=== PATIENT | female | born 1960 | race Caucasian/White ===

== ENCOUNTER 2021-01-16 11:37 | Emergency (ER) | payer OTHER, SELFPAY ==
[2021-01-16 11:43] VITALS: BP 156/94; PULSE 80; RESP 18; TEMP 36.3; O2SAT 98; BMI 32.1
--- NOTE | 2021-01-16 12:31 | ED.EYEPROB ---
HPI - Eye Problem General Chief complaint: Eye Problems Stated complaint: r eye issue Time Seen by Provider: 01/16/21 12:31 Source: patient Mode of arrival: ambulatory Limitations: no limitations History of Present Illness HPI Narrative: 60-year-old female came in for evaluation of her right eye redness. 60-year-old female came in for right eye redness, no eye discharge, no sticking eye, no watery eye, no recent eye injury, patient declined any anticoagulation therapy, no recent constipation or coughing, no recent strenuous activity. 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 Related Data Allergies Allergy/AdvReac Type Severity Reaction Status Date / Time No Known Allergies Allergy Unverified 12/05/19 19:06 Review of Systems Review of Systems: All other systems are reviewed and are negative Constitutional: Reports as per HPI and Reports no additional constitutional complaints Eyes: Reports as per HPI and Reports no additional eye complaints Reports system reviewed and no additional complaints, except as documented Cardiovascular: Reports as per HPI and Reports no additional cardiovascular complaints Respiratory: Reports as per HPI and Reports no additional respiratory complaints Gastrointestinal: Reports as per HPI and Reports no additional gastrointestinal complaints Genitourinary: Reports no additional female genitourinary complaints Musculoskeletal: Reports no additional musculoskeletal complaints Skin/Breast: Reports system reviewed and no additional complaints, except as docu Psychiatric: Reports no additional psychiatric complaints Endocrine: Reports no additional endocrine complaints Hematologic/Lymphatic: Reports no additional hematologic/lymphatic complaints Allergic/Immunologic: Reports no additional allergic/immunologic complaints Reports system reviewed and no additional complaints, except as documented and Reports Abnormal speech present FOR[facility]LY [facility] Past Medical History Medical History HTN (hypertension) Hypoactive thyroid Social History Social History Advance Directives: Yes Advance Directives Information Provided: Yes Advance Directives on File: No Patient : No Physical Exam Vital Signs: Vital Signs: Last Vital Signs Temp 97.3 F 01/16/21 11:43 Pulse 80 01/16/21 11:43 Resp 18 01/16/21 11:43 BP 156/94 H 01/16/21 11:43 Pulse Ox 98 01/16/21 11:43 Body Mass Index 32.1 Vital signs have been reviewed as appeared to be correct. Blood pressure normal. Heart rate normal. Respiration rate normal. Temperature normal. Oxygen saturation normal. Appearance: Alert. Oriented X3. No acute distress. Head: Normal external exam. Normocephalic. Atraumatic. No Costa signs noted. No raccoon eyes noted Eyes: PERRLA. EOMI. No IUP in her right 13 in the left 12, subconjunctival hemorrhage on the right eye. ENT: TM's Normal. Pharynx normal. Uvula midline. Moist mucous membranes. No trismus noted. No drooling noted. No muffled voice noted. Neck: Normal inspection. Neck supple. FROM. No adenopathy. Thyroid Normal. No meningeal signs. No neck mass noted. CVS: Normal heart rate and rhythm. Heart sound normal. No murmurs noted. Pulses normal throughout. Respiratory: No respiratory distress. Painless inspiration. Breath sounds normal. No wheezes/rales/rhonchi noted. Chest nontender. No accessory muscle usage noted or decreased air movement noted. Abdomen: Soft and nontender. Bowel sounds normal in all 4 quadrants. No distention noted. No organomegaly noted. No visible injury noted. Back: No CVA tenderness. Full range of motion noted. Skin: Skin warm and dry. Normal skin color. Normal skin turgor. No rashes/lesions/lacerations noted. Extremities: No lower extremity edema. Extremities exhibit normal range of motion. Extremities nontender. Neuro: Oriented X 3. Cranial nerve exam: II-XII are grossly intact No motor deficit. No sensory deficit. Reflexes normal. Course Course Course Narrative: Assessment and plan. Right subconjunctival hemorrhage. Nontraumatic, no issue of glaucoma, no anticoagulation therapy. Patient was instructed to avoid strenuous activity. Discharge Plan Discharge Clinical Impression: Subconjunctival hemorrhage Patient Disposition: Home, Self-Care Instructions: Subconjunctival Hemorrhage (ED) Referrals: Eddie Lott MD [Primary Care Provider] - 2 days Stand Alone Forms: Work/School Release
== END 2021-01-16 12:41 | disposition home or self-care (01) ==
PROVIDERS: Emergency Provider Emergency Medicine; PCP Internal Medicine
DX: H11.31 Conjunctival hemorrhage, right eye (principal)
CPT/HCPCS: 99281; 99282

== ENCOUNTER 2024-07-12 09:04 | Emergency (ER) | payer OTHER, SELFPAY ==
--- NOTE | ~2024-07-12 | CT_ITS ---
EXAMINATION: CT ABDOMEN PELVIS WITHOUT THEN WITH IV CONTRAST HISTORY: dark red blood per rectum, clots, abd pain COMPARISON: None. TECHNIQUE: CT scan of the abdomen and pelvis was performed before and after the intravenous administration of 85 mL Omnipaque 350. Post contrast imaging was performed in the arterial and delayed phases to evaluate for active extravasation. Coronal and sagittal reformatted images were generated and reviewed. Oral contrast material was not administered per department protocol. This CT exam was performed with one or more of the following dose reduction techniques: automated exposure control, adjustment of the mA and/or kV according to patient size, use of iterative reconstruction technique. DLP: 1787 mGy-cm ABDOMEN: LOWER CHEST: The visualized lung bases are clear. There is no pleural effusion. CARDIOVASCULATURE: The heart is normal in size. There is no pericardial effusion. LIVER: The liver is normal in size and contour. No liver mass is identified. The hepatic and portal veins are patent. GALLBLADDER / BILE DUCTS: The gallbladder is unremarkable. There is no intra or extrahepatic biliary ductal dilatation. SPLEEN: The spleen is normal in size. No focal splenic lesion is identified. PANCREAS: The pancreas is unremarkable in appearance. ADRENAL GLANDS: Within normal limits. KIDNEYS/RETROPERITONEUM: No renal calculi are identified. There is no hydronephrosis. No renal masses are identified. LYMPH NODES: No abdominal or pelvic lymphadenopathy. VASCULATURE: The abdominal aorta is normal in caliber. MESENTERY/PERITONEUM: No free fluid. No masses. There is no free intraperitoneal gas. STOMACH: The stomach is collapsed, limiting evaluation. SMALL BOWEL: The small bowel is normal in caliber. COLON: There is diverticulosis of the descending and sigmoid colon. There is moderate wall thickening of the sigmoid colon with mild to moderate pericolonic inflammatory stranding. Findings likely represent diverticulitis or possibly colitis. Underlying neoplasm is not excluded. There is no extravasation of contrast to suggest active GI bleeding. APPENDIX: Normal. URINARY BLADDER/PELVIC ORGANS: The urinary bladder is nondistended, limiting evaluation. There is a 1.8 cm partially calcified right-sided uterine mass, consistent with a fibroid. BONES / SOFT TISSUES: No suspicious bony or soft tissue abnormalities. CT/CT gi bleed abd pel wo/w IVcon IMPRESSION: Findings consistent with sigmoid diverticulitis or possibly colitis, as described. Follow-up sigmoidoscopy is recommended to exclude underlying neoplasm. There is no contrast extravasation to suggest active GI bleeding. Electronically signed by: Manolo Oliveira MD 07/12/2024 11:39 AM EDT
[2024-07-12 09:21] VITALS: BP 164/81; PULSE 105; RESP 20; TEMP 37.3; O2SAT 99; BMI 28.3
[2024-07-12 09:58] VITALS: BP 146/98; PULSE 92; RESP 14; RESP 16; TEMP 37.3; O2SAT 99
[2024-07-12] MEDS: Morphine Sulfate 2 MG/ML CARTRIDGE IVPUSH (09:58)
[2024-07-12] MEDS: 0.9 % Sodium Chloride 1,000 ML 999 ML IV (09:58)
--- NOTE | 2024-07-12 09:58 | ED.GIBLEED ---
HPI - GI Bleed General Chief complaint: GI Bleed Stated complaint: Blood Clots, Crampy Time Seen by Provider: 07/12/24 09:39 Source: patient, RN notes reviewed and old records reviewed Mode of arrival: ambulatory History of Present Illness ED Provider: Hortensia Gordon PA-C [facility] Narrative: 64-year-old female with a past medical history HTN presenting to the ED complaining of lower abdominal cramping and dark red bloody diarrhea x 3 days. States she is discharging rectal clots, and marika blood without stool. Admits to feeling fatigued. Denies nausea, vomiting, fever, chills, dysuria/hematuria. Reports social ETOH use, denies history of ETOH withdrawal. Denies anticoagulation use. Related Data Home Medications ?Medication ?Instructions ?Recorded ?Confirmed levothyroxine 112 mcg tablet 112 mcg PO DAILY PRN 01/05/22 (Euthyrox) venlafaxine 75 mg capsule,extended 75 mg PO DAILY 01/05/22 release 24 hr Previous Rx's ?Medication ?Instructions ?Recorded azithromycin 250 mg tablet See Rx Instructions PO .COMPLEX #6 01/05/22 tabs meloxicam 15 mg tablet 15 mg PO DAILY #14 tabs 01/05/22 amoxicillin 875 mg-potassium 1 tab PO TID 7 days #21 tabs 07/12/24 clavulanate 125 mg tablet Allergies Allergy/AdvReac Type Severity Reaction Status Date / Time No Known Allergies Allergy Unverified 07/12/24 09:24 Review of Systems Review of Systems: Yes all other systems are reviewed and are negative Constitutional: Constitutional: Reports as per [facility] Past Medical History Attestation statement: The following information was validated with the patient. Source: old records reviewed Medical History HTN (hypertension) Hypoactive thyroid Social History Social History Alcohol intake: current Alcohol intake frequency: a few times a month Smoked in Last 30 Days: No Use of substances other than those prescribed or required for medical reasons: No Advance Directives: No Advance Directives Information Provided: Yes Patient : No Physical Exam Vital Signs: Vital Signs: Last Vital Signs Temp 97.9 F 07/12/24 16:00 Pulse 83 07/12/24 16:00 Resp 12 07/12/24 16:00 BP 134/87 07/12/24 16:00 Pulse Ox 96 07/12/24 16:00 O2 Del Method Room Air 07/12/24 12:00 BMI result Body Mass Index 28.3 Const: General: cooperative, healthy appearing and no acute distress Orientation/consciousness: patient oriented x3 Limitations: no limitations HEENT: Head: Yes normal to inspection and Yes atraumatic Ears: hearing grossly normal bilaterally General nose exam: Normal external nose present Face and sinus: Yes normal facial exam Eyes: General: appearance normal, both eyes and all related structures EOM: EOMs intact bilaterally Neck: Neck: Yes normal visual inspection and Yes no meningeal signs Resp: Effort & Inspection: normal respiratory effort and no respiratory distress Cardio: Rate: regular rate GI: Inspection: Yes normal to inspection Palpation (GI): Soft to palpation, Tenderness to palpation present (GI) (Lower abdominal) with no rebound tenderness, no guarding and not rigid Rectal Exam - Female: heme positive stool (Dark red stool noted on rectal) and External hemorrhoid(s) present (Without thrombosis or active bleeding) Skin: Rashes: no rashes Wounds: no wounds Neuro: General: patient oriented x3, tone normal and no meningeal signs Cranial nerves: Yes CN's II-XII intact bilaterally Gait exam (Neuro): Normal gait present Extrem: General: Yes normal to inspection Course Course Course Narrative: -1240--no leukocytosis. H/H stable at 15.5/46.2. Labs otherwise reassuring -occult stool positive CT gi bleed abd pel wo/w IVcon IMPRESSION: Findings consistent with sigmoid diverticulitis or possibly colitis, as described. Follow-up sigmoidoscopy is recommended to exclude underlying neoplasm. There is no contrast extravasation to suggest active GI bleeding. > 1249- patient is tolerating p.o. in the ED. Will obtain repeat CBC to check blood count. No active rectal bleeding or bloody BM since ED arrival -1311--H/H with slight drop from 15.5-13.8 > did receive 1 L IVF in the ED. Will obtain additional 3hr repeat -1649--repeat CBC stable. No diarrhea or bloody BMs since ED arrival. Patient is safe for discharge home at this time with p.o. antibiotics and close GI follow-up strict return precautions and worrisome signs and symptoms discussed Results discussed with patient including worrisome signs and symptoms and strict return precautions, and when to return to the emergency department. They verbalized understanding and feel safe for discharge at this time. Medications Administered Discontinued Medications Generic Name Dose Route Start Last Admin Trade Name Carolina PRN Reason Stop Dose Admin Amoxicillin/Clavulanate Potassium 875 mg 07/12/24 13:12 07/12/24 14:26 Amoxicillin/Potassium Clav 875 Mg Tablet PO 07/12/24 13:13 875 mg ONCE ONE Administration Sodium Chloride 1,000 mls @ 999 mls/hr 07/12/24 10:00 07/12/24 11:00 Ns IV 07/12/24 11:00 Infused .Q1H1M ESTRELLA Infusion Iohexol 100 ml 07/12/24 11:23 07/12/24 11:23 Iohexol 350 Mg/Ml 100 Ml Infus..Btl IV 07/12/24 11:24 85 ml ONCE ONE Administration Morphine Sulfate 2 mg 07/12/24 09:49 07/12/24 09:58 Morphine Sulfate 2 Mg/Ml Cartridge IVPUSH 07/12/24 09:50 2 mg ONCE ONE Administration Protocol Ondansetron HCl 4 mg 07/12/24 15:39 07/12/24 15:45 Ondansetron Hcl 4 Mg/2 Ml Vial IVPUSH 07/12/24 15:40 4 mg ONCE ONE Administration Medical Decision Making Medical Decision Making MDM Narrative: 64-year-old female with a past medical history HTN presenting to the ED complaining of lower abdominal cramping and dark red bloody diarrhea x 3 days. On exam initially tachycardic, low-grade temp 99.2 degrees, NAD/nontoxic appearing at this time, abdomen soft with lower/suprapubic tenderness, no rebound or guarding, dark red stool noted on rectal exam. Concern for GI bleed vs anemia vs colitis/diverticulitis. Lower suspicion for acute appendicitis, cholecystitis/lithiasis or pancreatitis at this time Plan: Labs, UA, GI bleed CT, occult stool, IVF, re-evaluate Please refer to course for remaining clinical decision making, interpretation of labs/imaging results, and discussions with consultants and/or family members. Differential Diagnosis Differential Diagnoses: The differential diagnosis associated with the presentation includes As above Admission/Observation Consideration of admission/observation: Escalation of care including admission/observation considered Lab Data MDM Lab Attestation statement: I reviewed the patient's lab results. 07/12/24 16:24 07/12/24 09:44 Labs: Lab Results 07/12/24 07/12/24 07/12/24 Range/Units 09:44 09:48 12:42 WBC 10.9 H 10.7 (4.8-10.8) X10*3/uL RBC 5.92 H 5.34 (4.20-5.50) X10*6/uL Hgb 15.5 13.8 (12.0-16.0) g/dl Hct 46.2 42.5 (37.0-47.0) % MCV 78.0 L 79.6 L (80.0-98.0) fL MCH 26.2 L 25.8 L (27.0-33.0) pg MCHC 33.5 32.5 (31.0-35.0) g/dl RDW 14.5 14.6 (11.0-16.0) % Plt Count 274 235 (160-400) X10*3/uL MPV 9.9 9.9 (9.4-12.3) fL Immature Gran % (Auto) 0.4 0.3 (0.0-0.4) % Neut % (Auto) 71.6 70.4 (45-73) % Lymph % (Auto) 17.7 L 19.7 L (20-40) % [place] % (Auto) 10.1 9.4 (2-11) % Eos % (Auto) 0.1 0.1 (0-4) % Baso % (Auto) 0.1 0.1 (0-2) % Lymph # (Auto) 1.9 2.1 (1.2-4.9) X10*3/uL [place] # (Auto) 1.1 1.0 (0.1-1.2) X10*3/uL Eos # (Auto) 0.0 0.0 (0.0-0.4) X10*3/uL Baso # (Auto) 0.0 0.0 (0.0-0.2) X10*3/uL Abs Immat Gran (auto) 0.04 H 0.03 (0.00-0.03) X10*3/uL Absolute Neuts (auto) 7.8 7.5 (2.0-8.3) x10*3/uL Absolute Nucleated RBC 0.000 0.000 (0.0-0.012) X10*3/uL Nucleated RBC % (auto) 0.0 0.0 (0.0-0.2) /100WBC Sodium 141 (135-145) mmol/L Potassium 3.9 (3.3-5.1) mmol/L Chloride 106 (96-108) mmol/L Carbon Dioxide 26 (22-29) mmol/L Anion Gap 13 (12-20) BUN 13 (9-16) mg/dL Creatinine 0.77 (0.5-1.4) mg/dL Estim Creat Clear Calc 78.5 Estimated GFR > 60 Random Glucose 136 H (60-115) mg/dL Calcium 9.7 (8.4-10.2) mg/dL Magnesium 2.1 (1.6-2.6) mg/dL Total Bilirubin 0.7 (0.0-1.0) mg/dL Direct Bilirubin 0.3 (0.0-0.5) mg/dL AST 19 (5-31) U/L ALT 21 (0-31) U/L Alkaline Phosphatase 86 (39-117) U/L Total Protein 7.2 (6.5-8.0) g/dL Albumin 4.4 (3.5-5.0) g/dL Lipase 16 (8-78) U/L Stool Occult Blood POSITIVE (NEGATIVE) Ethyl Alcohol < 10 mg/dL Blood Type A Negative Antibody Screen NEGATIVE 07/12/24 Range/Units 16:24 WBC 10.0 (4.8-10.8) X10*3/uL RBC 5.45 (4.20-5.50) X10*6/uL Hgb 14.1 (12.0-16.0) g/dl Hct 42.9 (37.0-47.0) % MCV 78.7 L (80.0-98.0) fL MCH 25.9 L (27.0-33.0) pg MCHC 32.9 (31.0-35.0) g/dl RDW 14.6 (11.0-16.0) % Plt Count 228 (160-400) X10*3/uL MPV 9.7 (9.4-12.3) fL Immature Gran % (Auto) 0.6 H (0.0-0.4) % Neut % (Auto) 64.7 (45-73) % Lymph % (Auto) 23.4 (20-40) % [place] % (Auto) 10.9 (2-11) % Eos % (Auto) 0.3 (0-4) % Baso % (Auto) 0.1 (0-2) % Lymph # (Auto) 2.3 (1.2-4.9) X10*3/uL [place] # (Auto) 1.1 (0.1-1.2) X10*3/uL Eos # (Auto) 0.0 (0.0-0.4) X10*3/uL Baso # (Auto) 0.0 (0.0-0.2) X10*3/uL Abs Immat Gran (auto) 0.06 H (0.00-0.03) X10*3/uL Absolute Neuts (auto) 6.5 (2.0-8.3) x10*3/uL Absolute Nucleated RBC 0.000 (0.0-0.012) X10*3/uL Nucleated RBC % (auto) 0.0 (0.0-0.2) /100WBC Sodium (135-145) mmol/L Potassium (3.3-5.1) mmol/L Chloride (96-108) mmol/L Carbon Dioxide (22-29) mmol/L Anion Gap (12-20) BUN (9-16) mg/dL Creatinine (0.5-1.4) mg/dL Estim Creat Clear Calc Estimated GFR Random Glucose (60-115) mg/dL Calcium (8.4-10.2) mg/dL Magnesium (1.6-2.6) mg/dL Total Bilirubin (0.0-1.0) mg/dL Direct Bilirubin (0.0-0.5) mg/dL AST (5-31) U/L ALT (0-31) U/L Alkaline Phosphatase (39-117) U/L Total Protein (6.5-8.0) g/dL Albumin (3.5-5.0) g/dL Lipase (8-78) U/L Stool Occult Blood (NEGATIVE) Ethyl Alcohol mg/dL Blood Type Antibody Screen Independent Interpretation I performed an independent interpretation of an: CT Scan Radiology Impression Discussion of test interpretation with radiology: I have reviewed the radiologist's reading. External Record Review External record reviewed: Inpatient record, Office record, Outpatient record, Prior outpatient labs, Prior outpatient radiology, Primary care record and Outside ED record Tests considered The following testing was considered but not selected: As above Prescription Management I considered prescription management with: Other Chronic Conditions Patient?s care impacted by: Other Social Determinants Patient?s care significantly limited by Social Determinants of Health including: Other Social Determinant of Health Critical Care Time Critical Care Time Critical Care Time: Yes Total Critical Care Time: 35 Attestation: I have personally provided critical care time exclusive of time spent on separately billable procedures. Time includes review of lab data, radiology results, discussion with consultants, and monitoring for potential decompensation. Intervention performed as documented. Discharge Plan Discharge Clinical Impression: Sigmoid diverticulitis, Diverticular hemorrhage Patient Disposition: Home, Self-Care Instructions: Gastrointestinal Bleeding (ED), Diverticulosis (ED), Diverticulitis Diet (ED) Additional Instructions: You have diverticulitis. You are bleeding from your diverticulitis Augmentin as an antibiotic please take as prescribed until completion Please practice a clear liquid diet for the next 3 days Make sure drinking plenty of fluids YOU NEED TO FOLLOW-UP WITH GASTROENTEROLOGY. CALL TO MAKE AN APPOINTMENT. YOU SHOULD ALSO FOLLOW UP WITH HER PCP If your pain persists/worsens, you develop fever, persistent or worsening rectal bleeding, lightheadedness/dizziness return to the ED immediately Prescriptions: New amoxicillin-pot clavulanate 875-125 mg tablet 1 tab PO TID 7 Days Qty: 21 0RF No Action venlafaxine 75 mg capsule,extended release 24hr 75 mg PO DAILY levothyroxine [Euthyrox] 112 mcg tablet 112 mcg PO DAILY PRN azithromycin 250 mg tablet See Rx Instructions PO .COMPLEX Qty: 6 0RF Rx Instructions: take 500 mg today (day 1), then 250 mg for 4 days (days 2-5) PO meloxicam 15 mg tablet 15 mg PO DAILY Qty: 14 0RF Referrals: [facility] [place] [facility] [Provider Group] - 5 days Eddie Lott MD [Primary Care Provider] - 3 days Print Language: Maori
[2024-07-12 10:07] LABS: MANUAL DIFF FLAG NO
[2024-07-12 10:08] LABS: OBS Int Ctl Valid YES; OBS1 POSITIVE (NEGATIVE)
[2024-07-12 10:09] LABS: Basophils Percent Auto 0.1 % (0-2); Eosinophils Percent Auto 0.1 % (0-4); Hematocrit 46.2 % (37.0-47.0); Hemoglobin 15.5 g/dl (12.0-16.0); Imm Gran Abs Auto 0.04 X10*3/uL (0.00-0.03); Imm Gran Pct Auto 0.4 % (0.0-0.4); Lymphocytes Absolute Auto 1.9 X10*3/uL (1.2-4.9); Lymphocytes Percent Auto 17.7 % (20-40); Mean Corpuscular HGB Conc 33.5 g/dl (31.0-35.0); Mean Corpuscular Hemoglobin 26.2 pg (27.0-33.0); Mean Platelet Volume 9.9 fL (9.4-12.3); Monocytes Absolute Auto 1.1 X10*3/uL (0.1-1.2); Monocytes Percent Auto 10.1 % (2-11); Neutrophils Absolute Auto 7.8 x10*3/uL (2.0-8.3); Neutrophils Percent Auto 71.6 % (45-73); Platelet Count 274 X10*3/uL (160-400); Red Blood Count 5.92 X10*6/uL (4.20-5.50); Red Cell Distribution Width 14.5 % (11.0-16.0); White Blood Count 10.9 X10*3/uL (4.8-10.8)
[2024-07-12 10:28] LABS: Anion Gap 13 (12-20)
[2024-07-12 10:34] LABS: Alanine Aminotransferase 21 U/L (0-31); Albumin Level 4.4 g/dL (3.5-5.0); Alkaline Phosphatase 86 U/L (39-117); Aspartate Amino Transferase 19 U/L (5-31); Bilirubin Direct 0.3 mg/dL (0.0-0.5); Bilirubin Total 0.7 mg/dL (0.0-1.0); Blood Urea Nitrogen 13 mg/dL (9-16); Calcium 9.7 mg/dL (8.4-10.2); Carbon Dioxide 26 mmol/L (22-29); Chloride 106 mmol/L (96-108); Creatinine Clr Calc Pharmacy 78.5; Estimated Glomerular Filt Rate > 60; Ethanol < 10 mg/dL; Glucose Random 136 mg/dL (60-115); Lipase 16 U/L (8-78); Magnesium 2.1 mg/dL (1.6-2.6); Potassium 3.9 mmol/L (3.3-5.1); Sodium 141 mmol/L (135-145); Total Protein 7.2 g/dL (6.5-8.0)
[2024-07-12] MEDS: iohexoL 350 MG/ML 100 ML INFUS..BTL IV (11:23)
[2024-07-12 12:00] VITALS: BP 129/72; PULSE 81; RESP 14; TEMP 36.6; O2SAT 96
--- NOTE | 2024-07-12 12:10 | PC.NURSE ---
64-year-old female with a past medical history HTN presenting to the ED complaining of lower abdominal cramping and dark red bloody diarrhea x 3 days. H/H stable at this time. manager line maintained and NSR noted. Lungs clear bilat. Respirations even and non-labored. Abdomen soft, with positive bowel sounds. No significant tenderness noted. Denies any abdominal pain at this time. Positive pedal pulses with no edema noted. Pending repeat labwork.
[2024-07-12 12:48] LABS: MANUAL DIFF FLAG NO
[2024-07-12 12:57] LABS: Basophils Percent Auto 0.1 % (0-2); Eosinophils Percent Auto 0.1 % (0-4); Hematocrit 42.5 % (37.0-47.0); Hemoglobin 13.8 g/dl (12.0-16.0); Imm Gran Abs Auto 0.03 X10*3/uL (0.00-0.03); Imm Gran Pct Auto 0.3 % (0.0-0.4); Lymphocytes Absolute Auto 2.1 X10*3/uL (1.2-4.9); Lymphocytes Percent Auto 19.7 % (20-40); Mean Corpuscular HGB Conc 32.5 g/dl (31.0-35.0); Mean Corpuscular Hemoglobin 25.8 pg (27.0-33.0); Mean Corpuscular Volume 79.6 fL (80.0-98.0); Mean Platelet Volume 9.9 fL (9.4-12.3); Monocytes Percent Auto 9.4 % (2-11); Neutrophils Absolute Auto 7.5 x10*3/uL (2.0-8.3); Neutrophils Percent Auto 70.4 % (45-73); Platelet Count 235 X10*3/uL (160-400); Red Blood Count 5.34 X10*6/uL (4.20-5.50); Red Cell Distribution Width 14.6 % (11.0-16.0); White Blood Count 10.7 X10*3/uL (4.8-10.8)
[2024-07-12 14:00] VITALS: BP 137/86; PULSE 78; RESP 15; TEMP 36.3; O2SAT 98
[2024-07-12] MEDS: Amoxicillin/Potassium Clav 875 MG TABLET PO (14:26)
[2024-07-12] MEDS: ondansetron HCL 4 MG/2 ML VIAL IVPUSH (15:45)
[2024-07-12 16:00] VITALS: BP 134/87; PULSE 83; RESP 12; TEMP 36.6; O2SAT 96
[2024-07-12 16:28] LABS: MANUAL DIFF FLAG NO
[2024-07-12 16:29] LABS: Basophils Percent Auto 0.1 % (0-2); Eosinophils Percent Auto 0.3 % (0-4); Hematocrit 42.9 % (37.0-47.0); Hemoglobin 14.1 g/dl (12.0-16.0); Imm Gran Abs Auto 0.06 X10*3/uL (0.00-0.03); Imm Gran Pct Auto 0.6 % (0.0-0.4); Lymphocytes Absolute Auto 2.3 X10*3/uL (1.2-4.9); Lymphocytes Percent Auto 23.4 % (20-40); Mean Corpuscular HGB Conc 32.9 g/dl (31.0-35.0); Mean Corpuscular Hemoglobin 25.9 pg (27.0-33.0); Mean Corpuscular Volume 78.7 fL (80.0-98.0); Mean Platelet Volume 9.7 fL (9.4-12.3); Monocytes Absolute Auto 1.1 X10*3/uL (0.1-1.2); Monocytes Percent Auto 10.9 % (2-11); Neutrophils Absolute Auto 6.5 x10*3/uL (2.0-8.3); Neutrophils Percent Auto 64.7 % (45-73); Platelet Count 228 X10*3/uL (160-400); Red Blood Count 5.45 X10*6/uL (4.20-5.50); Red Cell Distribution Width 14.6 % (11.0-16.0)
[2024-07-12 17:20] VITALS: BP 134/87; PULSE 83; RESP 12; TEMP 36.6; O2SAT 96
== END 2024-07-12 17:21 | disposition home or self-care (01) ==
PROVIDERS: Physician Assistant; Emergency Provider Emergency Medicine; PCP Internal Medicine
DX: K57.33 Diverticulitis of large intestine without perforation or abscess with bleeding (principal); I10 Essential (primary) hypertension
CPT/HCPCS: 36415; 74178; 80048; 80076; 80307; 82272; 83690; 83735; 85025; 86850; 86900; 86901; 96361; 96374; 96375; 99284; 99285; J2270; J2405; Q9967

== ENCOUNTER → 2024-07-12 09:49 | Outpatient (BNV) | payer OTHER, SELFPAY | PROVIDERS: Emergency Provider Emergency Medicine; PCP Internal Medicine; Visit Provider Radiology Diagnostic Radiology | DX: R10.9 Unspecified abdominal pain (principal); K62.5 Hemorrhage of anus and rectum | CPT/HCPCS: 74178 ==